=== PATIENT | male | born 1945 ===

== ENCOUNTER 2023-04-30 12:46 | Outpatient (REF) | payer MEDICARE, OTHER, SELFPAY ==
--- NOTE | ~2023-04-30 | XR_ITS ---
EXAMINATION: XR LUMBOSACRAL SPINE WITH OBLIQUES CLINICAL INFORMATION: Radiculopathy. COMPARISON: None available. TECHNIQUE: 4 views of the lumbosacral spine inclusive of flexion and extension views. FINDINGS: The bones are diffusely demineralized. Facet arthritis in the fje-be-lkbdw lumbar spine. Advanced multilevel degenerative changes in the lumbar spine with multilevel loss of disc space height most notable at L3-L4, and L4-L5. Minimal retrolisthesis of L2 on L3 with flexion and extension. XR/XR lumbar spine 4V min IMPRESSION: Advanced multilevel degenerative disc disease most notable at L3-L4 and L4-L5.
== END 2023-04-30 12:47 | disposition home or self-care (01) ==
LOC: HO.HOSX 12:46
PROVIDERS: Visit Provider Physician Assistant
DX: M54.16 Radiculopathy, lumbar region (principal)
CPT/HCPCS: 72110; 99202

== ENCOUNTER 2023-04-30 12:46 | Outpatient (AMB) | payer MEDICARE, MEDICAID, SELFPAY ==
--- NOTE | 2023-04-30 13:01 | HO.SPINEOV ---
Intake Intake Visit Reasons: left side sciatica Intake Note: Mr. Aguilera is here today c/o left sided sciatica that radiates down the leg Latex Spooler Required: No Allergies No Known Allergies Allergy (Verified 04/30/23 13:01) Assessment & Plan Assessment & Plan (1) Lumbar radiculopathy: Code(s): M54.16 - Radiculopathy, lumbar region Plan Dear JASON Benson, Thank you for referring Jorge to our office today. He is a pleasant 77 y/o male who comes in today with a CC of low back pain with radiation into his left lower extremity. When describing the radiation of his pain he runs his hand over his posterior left buttocks in across his lateral left calf. This pain has been present for >1 month. He reports that during the last snowstorm, he was shoveling snow and felt a pop in his back. He has had shooting pains into his left lower extremity since. This has affected his ability to walk, and causes him to need to stop and rest often while ambulating due to the pain. He was prescribed a course of ibuprofen alongside prednisone to help alleviate his symptoms but these did not help. He also reports he received a course of tramadol and gabapentin from his primary care provider which has been modestly helpful. He is attempted to utilize ice/heat/bayc-zue-iefcllh pain patches in creams without significant relief of symptoms. He has not yet attempted physical therapy or other conservative measures. PMH: Hypertension, hyperlipidemia, seasonal allergies. Social hx: Patient reports he does not smoke and denies substance use. Medications: Baclofen, Voltaren gel, fluticasone, losartan-hydrochlorothiazide, amlodipine, atorvastatin, alcometasone. Allergies: NKDA Physical exam: Jorge has 5/5 strength in his upper and lower extremities. He reports some tingling over the lateral aspect of his left calf and posterior buttocks on the left side. The rest of his sensation is grossly intact. His reflexes are 1+ hypoactive in the bilateral patella, and 2+ intact elsewhere. He ambulates with an antalgic gait significantly favoring his right side. (-) straight leg raise bilaterally. (-) Julien's. (-) clonus. Imaging review: MRI of the lumbar spine completed at [facility] shows diffuse spondylosis of the lumbar spine, with degenerative disc disease at L3-4 and L4-5. At L3-4 there is moderate central canal stenosis and severe bilateral foraminal stenosis. At L4-5 there appears to be a posterior disc protrusion causing moderate central canal stenosis, alongside severe bilateral foraminal stenosis worse on the right. Impression: Jorge is a pleasant 77-year-old male who comes in today with a chief complaint of 1 month of low back pain with radiation into his left lower extremity. He reports that this began acutely 1 month ago while shoveling snow. He felt a pop in his low back and has had pain ever since. When describing the radiation of his pain he runs his hand over his posterior buttocks in across his lateral left calf. This distribution is classic for an L5 radiculopathy on the left. I believe the patient is suffering from an acute L4-5 disc herniation causing his acute onset of low back pain with shooting pains into his left lower extremity. His conservative management has consistent largely of stretching in medication, therefore I would like him to be sent for physical therapy in the interim while he awaits a diskectomy. He has tentatively been scheduled for 06/15/2023 pending review and approval by Dr. Ortiz. The patient understands and is agreeable to this. This will give him plenty of time to attempt physical therapy. He was strongly advised to call us if he begins to have relief of symptoms as a result of engaging in physical therapy. We can postpone or cancel his surgery if so. I will update the patient next week with final approval and surgical plan updates after this case is reviewed with the attending Neurosurgeon Dr. Ortiz. Thank you for allowing us to care for your patient. The total time spent with this visit with this patient was 45 minutes reviewing history, physical exam, MRI imaging review, and implementation of treatment plan or further diagnostic testing Ricardo Ortiz MD,PhD [facility] Orders: Orders PT Evaluation and Treatment Today M54.16 - Radiculopathy, lumbar region XR lumbar spine 4V min Today M54.16 - Radiculopathy, lumbar region Coding Level of Care Code New Pt Level 4 (37688) Diagnoses Lumbar radiculopathy M54.16
== END 2023-04-30 13:43 | disposition home or self-care (01) ==
PROVIDERS: PCP Nurse Practitioner Family; Referring Provider Nurse Practitioner Family; Visit Provider Physician Assistant
DX: M54.16 Radiculopathy, lumbar region (principal)
CPT/HCPCS: 99204

== ENCOUNTER 2023-06-08 14:00 | Outpatient (RCR) | payer MEDICARE, OTHER, SELFPAY ==
--- NOTE | 2023-05-11 13:46 | MHC.PT.PR ---
[facility] [place] Office [place] [facility] [place] [facility] [address] Ted Mendes [address] [phone] F: [phone] F: [phone] F: [phone] F: [phone] Physical Therapy Progress Note Diagnosis: lumbar radiculopathy Date of Surgery: Date of Evaluation: 05/11/23 Treatments to Date: 1 Cancellations to Date: No Shows to Date: Subjective: I want to do my normal walking but this leg pain won't allow me. Pain Score and Location: 6 L buttock, pain shoots down L LE down to fibular head area Objective Measures: see eval Assessment: Pt is a 77yo male who presents with 1 month h/o lumbar radiculopathy, impairing his mobility. Skilled PT indicated to teach patient back protection techniques including sitting down with control and use of log roll during bed mobility, centralize radicular pain, increase core strength and L LE strength, teach HEP to carry-over pain management techniques at home. Pt in agreement with POC and is motivated to participate. PT Plan: Frequency and Duration: The patient will be seen 2x/week, x 6 weeks Treatment Plan: Therapeutic Exercise Dynamic Therapeutic Activities Manual Therapies Joint Mobilization Taping Gait Home Exercise Program Patient Education Electrical Stimulation Hot or Cold Pack Reviewed/ Agreed with Student Documentation: Therapist: Thank you once again for your referral.
--- NOTE | 2023-06-22 11:33 | MHC.PT.DC ---
[facility] [place] Office [place] Office [place] Office [address] [phone] F: [phone] F: [phone] F: [phone] F: [phone] Physical Therapy Discharge Report Diagnosis: lumbar radiculopathy Date of Surgery: Date of Evaluation: 05/11/23 Date of Discharge: 06/03/23 Treatments to Date: 9 Cancellations to Date: 0 No Shows to Date: 0 Discharge Status: Independent with HEP Recommend MD Follow-up Discharge Summary: Jorge participated in 9 PT treatments for lumbar radiculopathy. Pt has met STG's however continues to have LE pain. Pt is independent w/HEP and will be seeking follow up w/MD regarding continued radicular symptoms. Electronically signed by: Lizette White PT, DPT Please sign and return to therapist. Thank you for your referral.
== END 2023-06-22 11:34 | disposition home or self-care (01) ==
LOC: HO.PT 14:00
PROVIDERS: PCP Nurse Practitioner Family; Visit Provider Physician Assistant
DX: M54.16 Radiculopathy, lumbar region (principal)
CPT/HCPCS: 97012; 97110; 97140; 97161; 97530

== ENCOUNTER 2023-06-15 07:09 | Day surgery (SDC) | payer MEDICARE, OTHER, SELFPAY ==
[2023-06-01 13:18] VITALS: BP 135/63; PULSE 89; RESP 20; O2SAT 98; BMI 29.3
--- NOTE | 2023-06-01 13:29 | HO.ANESPROP2 ---
Documented by User: Camila Montalvo NP 06/01/23 13:44 HPI - Anesthesia Eval Consult details Narrative: 77yo M for Left L4-5 Microlumbar discectomy No recent illness No CP/SOB with walking with cane, >4 mets prior to back injury PreDM: 90-110, no rx PMFSH Active Problems Active Problems: All Active Problems (Updated 06/01/23 @ 13:13 by Eri Mercado RN) Lumbar radiculopathy (Acute) Past Medical History Medical History Back pain Pre-diabetes Elevated cholesterol HTN (hypertension) Family History Family history of problems with anesthesia: No Surgical History Surgical History History of esophagogastroduodenoscopy (EGD) H/O colonoscopy History of Problems with Anesthesia: No Social History Social History Household Members Other:: fiance Are you a primary career guidance technician to a significant other at home: No Do you presently have visiting nurse or other home services: No Patient Tobacco Use Status: Never used Tobacco Use of substances other than those prescribed or required for medical reasons: No Have you been hit, kicked, punched, or otherwise hurt by someone within the past year? If so, by whom?: No Are you DNR?: No Advance Directives: No Advance Directives Information Provided: Yes Advance Directives on File: No Recently lost weight without trying: No Eating poorly because of decreased appetite: No Nutrition Risks: Surgical patient >75years Poor oral hygiene: No (upper partial) Meds Allergies Allergy/AdvReac Type Severity Reaction Status Date / Time No Known Allergies Allergy Verified 04/30/23 13:01 Home Medications ?Medication ?Instructions ?Recorded ?Confirmed ?Last Taken ?Type amlodipine 2.5 mg tablet 2.5 mg PO DAILY 05/31/23 05/31/23 06/15/23 History ascorbic acid (vitamin C) 500 mg 500 mg PO DAILY 05/31/23 05/31/23 Unknown History tablet atorvastatin 20 mg tablet 20 mg PO DAILY 05/31/23 05/31/23 Unknown History fluticasone propionate 50 1 spray intranasal DAILY 05/31/23 05/31/23 Unknown History mcg/actuation nasal spray,suspension losartan 100 1 tab PO DAILY 05/31/23 05/31/23 Unknown History mg-hydrochlorothiazide 12.5 mg tablet multivitamin 1 tab PO DAILY 05/31/23 05/31/23 Unknown History Exam Height,Weight and Vital Signs: Height 5 ft 11 in Weight 95.254 kg Last Vital Signs Pulse 89 06/01/23 13:18 Resp 20 06/01/23 13:18 BP 135/63 06/01/23 13:18 Pulse Ox 98 06/01/23 13:18 O2 Del Method Room Air 06/01/23 13:18 Airway Mallampati Class: III TM Dist: >3cm Neck ROM: Full Partial: Upper Heart: RRR Lungs: CTAB Assessment and Plan Assessment Anesthesia Assessment: Anesthesia Plan Discussed and PAT Visit Final Anesthetic Review Family History of Problems with Anesthesia: No History of Problems with Anesthesia: No Documented by User: Aliya Madrigal MD 06/15/23 09:38 PMFSH Active Problems Active Problems: All Active Problems (Updated 06/15/23 @ 09:10 by Aliya Madrigal MD) Lumbar radiculopathy (Acute) HTN HLD Low back pain Past Medical History Medical History Back pain Pre-diabetes Elevated cholesterol HTN (hypertension) Family History Family history of problems with anesthesia: No Surgical History Surgical History History of esophagogastroduodenoscopy (EGD) H/O colonoscopy History of Problems with Anesthesia: No Social History Social History Household Members Other:: fiance Are you a primary career guidance technician to a significant other at home: No Do you presently have visiting nurse or other home services: No Patient Tobacco Use Status: Never used Tobacco Use of substances other than those prescribed or required for medical reasons: No Have you been hit, kicked, punched, or otherwise hurt by someone within the past year? If so, by whom?: No Are you DNR?: No Advance Directives: No Advance Directives Information Provided: Yes Advance Directives on File: No Recently lost weight without trying: No Eating poorly because of decreased appetite: No Nutrition Risks: Surgical patient >75years Poor oral hygiene: No (upper partial) Meds Allergies Allergy/AdvReac Type Severity Reaction Status Date / Time No Known Allergies Allergy Verified 04/30/23 13:01 Home Medications ?Medication ?Instructions ?Recorded ?Confirmed ?Last Taken ?Type amlodipine 2.5 mg tablet 2.5 mg PO DAILY 05/31/23 05/31/23 06/15/23 History ascorbic acid (vitamin C) 500 mg 500 mg PO DAILY 05/31/23 05/31/23 Unknown History tablet atorvastatin 20 mg tablet 20 mg PO DAILY 05/31/23 05/31/23 Unknown History fluticasone propionate 50 1 spray intranasal DAILY 05/31/23 05/31/23 Unknown History mcg/actuation nasal spray,suspension losartan 100 1 tab PO DAILY 05/31/23 05/31/23 Unknown History mg-hydrochlorothiazide 12.5 mg tablet multivitamin 1 tab PO DAILY 05/31/23 05/31/23 Unknown History Exam Height,Weight and Vital Signs: Height 5 ft 11 in Weight 95.254 kg Last Vital Signs Pulse 89 06/01/23 13:18 Resp 20 06/01/23 13:18 BP 135/63 06/01/23 13:18 Pulse Ox 98 06/01/23 13:18 O2 Del Method Room Air 06/01/23 13:18 Vital Signs Temp Pulse Resp BP Pulse Ox O2 Del Method 06/15/23 07:53 98.5 F 90 16 142/65 H 98 Room Air Airway Mallampati Class: II TM Dist: >3cm Neck ROM: Full Partial: Upper Loose/Missing/Broken Teeth: Yes (Top partial dentures. Missing some teeth bottom. Denies broken or loose teeth) Assessment and Plan Assessment Anesthesia Assessment: Anesthesia Plan Discussed, PAT Visit and Chart Reviewed Final Anesthetic Review Family History of Problems with Anesthesia: No History of Problems with Anesthesia: No NPO: Yes ASA Class: II Final Preanesthetic Review: No Changes in Pt Med Stat, Meds/Allgs Chart Reviewed, Consent Obtained/Reviewed and Anes Risks/Benef Reviewed Patient Risk: Intermediate Procedure Risk: Intermediate Assessment/Block/Sedation in SS: Assess/Block/Sedation-SS Anesthetic Plan Anesthetic Plan: GA Disposition: Standard PACU
[2023-06-15] VITALS (9 sets, daily range): BP systolic 85–153; BP diastolic 43–72; PULSE 61–90; RESP 12–18; TEMP 36.1–36.9; O2SAT 91–98; BMI 30.3
--- NOTE | ~2023-06-15 | FL_ITS ---
EXAMINATION: XR FLUOROSCOPY WITH IMAGES CLINICAL INFORMATION: L4-L5 decompression. COMPARISON: Lumbar spine radiographs dated 04/30/2023. TECHNIQUE: Fluoroscopy Supervised By: Dr. Omkar Ortiz. Fluoroscopy Time: 1.7 seconds. Cumulative Dose: 1.6215 mGy. DAP: 0.5209 Gycm2. Images: 1. FINDINGS: The submitted image shows a probe with tip positioned at the posterior L5-S1 level. FL/FL guidance in OR IMPRESSION: Intraoperative fluoroscopic guidance is provided during L5-S1 decompression surgery. Please see the patient's Operative Report for full procedural details.
--- NOTE | 2023-06-15 07:05 | MHC.SHP ---
Pre-Procedural Eval Section A - 24 Hr Update-Section A only Date of Service: 06/15/23 The patient is an INPATIENT: No Changes since office visit: No Cold of Flu in the past 2 weeks, No New Medical Problems, No Changes in Medication and No Patient answered all questions Section B - Complete if H&P > 30 days Chief Complaint: Radiculopathy, lumbar region Allergies: Allergies Allergy/AdvReac Type Severity Reaction Status Date / Time No Known Allergies Allergy Verified 04/30/23 13:01 Review of Systems Sugical H&P ROS: Negative: Constitution, Cardiovascular, Respiratory, Neurological, Psychiatric, Hem-Onc, Allergic/Immunologic, Gastrointestinal, Genitourinary, Musculoskeletal, Integumentary, Endocrine and Eyes/Ears/Nose/Throat Exam Surgical H&P Exam: Not Evaluated: HEENT, Not Evaluated: Heart, Not Evaluated: Lungs, Not Evaluated: Extremities, Not Evaluated: Abdomen, Not Evaluated: Skin and Not Evaluated: Neurological Plan Diagnosis/Plan: Unchanged left L4-5 decompression Time Spent With Patient Time: Total time managing care of this patient today __5__ minutes.
[2023-06-15] MEDS: methocarbamoL 750 MG TABLET PO (08:04)
[2023-06-15] MEDS: Gabapentin 300 MG CAPSULE PO (08:04)
[2023-06-15] MEDS: Lactated Ringers 1,000 ML 100 ML IVCONT (08:04)
--- NOTE | 2023-06-15 09:00 | PM.DS ---
DS: Providers Provider Date of Service: 06/15/23 Date of discharge: 06/15/23 Primary care physician: Darius Benson NP Admitting clinician: Jitendra Ortiz DS: Diagnosis Discharge Diagnosis (1) Lumbar radiculopathy: Status: Acute DS: Summary Time Attestation Discharge Coordination Time (in mins): 6 Quality: Safe Use of Opioids Does Pt have an Active Cancer Diagnosis on the Problem List?: No Quality: Stroke Does the patient have a stroke diagnosis?: No Physical Exam Vital Signs: Vital Signs: Last Vital Signs Temp 98.5 F 06/15/23 07:53 Pulse 90 06/15/23 07:53 Resp 16 06/15/23 07:53 BP 142/65 H 06/15/23 07:53 Pulse Ox 98 06/15/23 07:53 O2 Del Method Room Air 06/15/23 07:53 BMI result Body Mass Index 30.3 Discharge Plan Discharge Patient Disposition: Home, Self-Care Referrals: Darius Benson NP [Primary Care Provider] - 1 Week Discharge Medications: New docusate sodium [Colace] 100 mg capsule 100 mg PO BID Qty: 20 0RF oxycodone 5 mg tablet 5 mg PO Q4H PRN (Reason: pain) Qty: 20 0RF Rx Instructions: Partial Fill upon patient request. Continued multivitamin Tablet 1 tab PO DAILY atorvastatin 20 mg tablet 20 mg PO DAILY amlodipine 2.5 mg tablet 2.5 mg PO DAILY ascorbic acid (vitamin C) 500 mg Tablet 500 mg PO DAILY fluticasone propionate 50 mcg/actuation spray,suspension 1 spray intranasal DAILY losartan-hydrochlorothiazide 100-12.5 mg tablet 1 tab PO DAILY Discharge Orders: Discharge Order (Routine); Ordered 06/15/23 Ordered By: New [place] Diet: Advance to usual diet Activity on Discharge: As tolerated Activity Restrictions/Additional Instructions: After your spinal surgery we ask you to observe the following restrictions/guidelines: Activity: It is normal to feel some discomfort as you increase your activity, but that will improve with time. We ask you avoid heavy lifting or acitivities that cause pain. As a general rule, 8lbs is a safe limit for lifting right after surgery. Walk as much as you feel comfortable but not to exhaustion. You will feel extra tired the first few days after surgery. Stay well hydrated. It is OK to walk up and down stairs You may return to driving when you are off narcotics (such as vicodin, oxycodone, dilaudid, etc), and you are back to normal functional capacity. If you have any concerns please check with office before driving. Return to work is specific to each patient and each surgery, so please speak with your doctor/PA at first follow up. Please bring paperwork such as FMLA at that time if you need it filled out. Medications: For optimum pain control, it is best to start with a combination of 500 mg of Tylenol every 4 hours with 600 mg of Motrin every 8 hours, and use narcotics as needed in between for breakthrough pain. We will give you a short supply of narcotics after surgery (usually one weeks worth). If you need more please call the office but do not use more than prescribed. You will need to give our office 48 hours notice if you need narcotics refilled and we do not fill narcotics on weekends or evenings. If you are on a narcotic, it is a good idea to take a stool softener such as colace or senna to avoid constipation If you take blood thinner such as aspirin, Plavix, Coumadin, Effient, Eliquis etc for conditions such as Afib, DVT, Pulmonary embolus, coronary disease, stents etc please speak with your surgeon about specific details as to when you can resume these medications. You can resume NSAIDs on post op day 1 (eg: Motrin, Naproxen, etc). Follow up: Please call the office, , after surgery to arrange a 3 week follow up for wound check. Wound Care: You may remove your dressing on the first day after surgery. ?You may ?leave open to air. Please do not remove the steri strips underneath. they will fall off on their own in one week. IT IS NORMAL FOR THE WOUND TO OOZE OR BE BLOODY FOR A FEW DAYS AFTER SURGERY. ?IF THIS HAPPENS JUST PLACE NEW DRESSING OVER IT TO AVOID STAINING CLOTHES. You may shower on post op day # 1 We ask that you do not let the water soak the wound. If it does get wet, just towel dry lightly. Please do not scrub your incision or place any type of chemical/ointment on the wound. No tub baths, pools or jacuzzis for one month. If you have any leaking or redness from your wound, or fevers, please call office Print Language: Yoruba
--- NOTE | 2023-06-15 10:38 | P.OP_ITS ---
Operative Note Operative Note Date of Service: 06/15/23 Narrative: Preoperative Diagnosis: L4-5 spinal stenosis/lateral recess stenosis/neural foraminal stenosis Operation: Left L4-5 Laminotomy, Partial facetectomy and foraminotomy with use of microscope Consent Informed Consent was obtained for this operation. I have explained the nature, purpose and benefits of the operation. I have discussed the risks and benefit of the operation including possible complications or adverse events with patient/family. Alternative(s) were discussed with the patient with their relative benefits and risks as well as the consequences of not accepting the operation were included in obtaining consent. Surgeon: ALEKSANDAR KHAN MD, PHD Procedure Assisted By: [place] Description of Procedure Patient is suffering from unilateral neurogenic claudication due to L4-5 spinal stenosis.. The patient was offered a decompression. The procedure complications were explained. The patient was consented. The patient was brought to the operating room and endotracheally intubated. The patient was turned in prone position on the Андрей frame. Prep and drape was done followed by timeout. The Physician medical record assistant provided access. A mid lumbar incision was made followed by release of the paravertebral muscle on the left side to expose the L4-5 laminae and facet joints. An intraoperative x-ray was obtained to confirm the correct level. The microscope was brought in. I took over the procedure. The high-speed drill was used to do a L4-5 laminotomy until flavum ligament was reached. A #2 Kerrison was used to expand the laminotomy near flush to the pedicles and to include a partial facetectomy. The flavum ligament was opened and resected with a #3 Kerrison to decompress the underlying thecal sac. The flavum ligament was removed to decompress the lateral recess and the exiting L5 nerve root. A long nerve hook could be easily passed along the medial side of the pedicles as a sign of adequate decompression. There was also a significant disc bulge but this was calcified. The microscope was removed. Hemostasis was done. The physician medical record assistant close the Incision in 2 layers. Steri-Strips were used to approximate incision. An OpSite with Tegaderm was used to cover the incision. All sponge needle counts were correct. Patient was extubated and transported in stable is to recovery room. Anesthesia: General Estimated Blood Loss (ml): 20 mL Complications: None Duration of Surgery: Under 60 Minutes Postoperative Plan: Discharge to home
[2023-06-15] MEDS: Ondansetron ODT 4 MG TAB.RAPDIS TRANSLINGU (12:12)
--- NOTE | 2023-06-15 12:16 | HO.INF ---
PATIENT IN DC AREA....STATED FEELING DIZZY WITH SOME NAUSEA. DR. MCGOVERN (ANESTHESIOLOGIST) ASSESSED. PATIENT GIVEN ZOFRAN SL PER ORDER. PATIENT BROUGHT BACK TO PACU FOR SOME MORE FLUIDS R/T BP, 85/44, 92/43, HR 63, 02 SATS 91 TO 92 %.
--- NOTE | 2023-06-15 13:53 | HO.INF ---
PT CAME BACK TO DC AREA STILL REPORTING SOME DIZZINESS AND FATIGUE. DR. MCGOVERN REASSESSED PATIENT WITH VSS, 120/67, 72 AND 02 95%. DR[address] MCGOVERN CLEARED PATIENT AND PATIENT DC'D HOME WITH FAMILY MEMBER.
== END 2023-06-15 13:59 | disposition home or self-care (01) ==
PROVIDERS: PCP Nurse Practitioner Family; Visit Provider Neurological Surgery
PROC: (CPT 63047; principal; 2023-06-15 09:40)
DX: M54.16 Radiculopathy, lumbar region (principal); M48.061 Spinal stenosis, lumbar region without neurogenic claudication; M54.50 Low back pain, unspecified; R26.89 Other abnormalities of gait and mobility; R20.2 Paresthesia of skin; I10 Essential (primary) hypertension; E78.5 Hyperlipidemia, unspecified; J30.2 Other seasonal allergic rhinitis; Z79.51 Long term (current) use of inhaled steroids; Z79.899 Other long term (current) drug therapy
CPT/HCPCS: 63047; J0131; J0690; J2405; J2704; J3010

== ENCOUNTER → 2023-06-15 07:09 | Outpatient (BNV) | payer MEDICARE, MEDICAID, SELFPAY | PROVIDERS: PCP Nurse Practitioner Family; Visit Provider Neurological Surgery | DX: M48.062 Spinal stenosis, lumbar region with neurogenic claudication (principal); M54.16 Radiculopathy, lumbar region | CPT/HCPCS: 63047; 99499 ==

== ENCOUNTER 2023-07-06 13:27 | Outpatient (AMB) | payer MEDICARE, SELFPAY ==
--- NOTE | 2023-07-06 13:30 | A.SPINEOV_ITS ---
Intake Visit Reasons: 1st post op Intake Note: Mr. Aguilera is here today for 1st post-op appointment. Technology Instructor Required: No Allergies No Known Allergies Allergy (Verified 07/06/23 13:32) Assessment & Plan Assessment & Plan (1) Lumbar radiculopathy: Code(s): M54.16 - Radiculopathy, lumbar region Category: Medical Plan Procedure: Left L4-5 Laminotomy, Partial facetectomy and foraminotomy with use of microscope Jorge comes in today for his 1st postoperative visit. He reports he is very satisfied with the surgery and feels much better than he did pre-operatively. The patient reports he is up walking around and completing the majority of his ADLs. He reports he still has some residual left lumbar radiculopathy, but feels it is significantly better than it was prior to his surgery. It does not limit him to the extent that it previously did. He has several questions about postoperative healing course including activity and lifting restrictions. I answered these questions to the best of my ability No new neurological deficits. Patient is able to ambulate well, rises from a seated position without difficulty. Steri-Strips were still in place, they were removed. Incision site is closed, well healing, with no signs of drainage. We will follow-up with the patient in 6 weeks for their 2nd postoperative visit. Ricardo Ortiz MD,PhD [facility] Coding Level of Care Code Global (37529) Diagnoses Lumbar radiculopathy M54.16
== END 2023-07-06 13:52 | disposition home or self-care (01) ==
PROVIDERS: PCP Nurse Practitioner Family; Visit Provider Physician Assistant
DX: M54.16 Radiculopathy, lumbar region (principal)
CPT/HCPCS: 99024

== ENCOUNTER → 2023-07-06 13:27 | Outpatient (BNVA) | payer MEDICARE, SELFPAY | PROVIDERS: PCP Nurse Practitioner Family; Visit Provider Physician Assistant | DX: Z48.89 Encounter for other specified surgical aftercare (principal) | CPT/HCPCS: 99212 ==

== ENCOUNTER 2023-08-17 13:21 | Outpatient (AMB) | payer MEDICARE, SELFPAY ==
--- NOTE | 2023-08-17 13:27 | A.SPINEOV_ITS ---
Intake Visit Reasons: 2nd post op Intake Note: Ms. Aguilera is here today for 2nd post op Valet Attendant Required: No Allergies No Known Allergies Allergy (Verified 07/06/23 13:32) Assessment & Plan Assessment & Plan (1) Lumbar radiculopathy: Code(s): M54.16 - Radiculopathy, lumbar region Category: Medical Plan Procedure: Left L4-5 Laminotomy, Partial facetectomy and foraminotomy Jorge comes in today for his second post-operative visit. He reports that he is doing very well since his surgery, and is feeling overall very well. He states that he still has some tenderness in his low back but feels that also is improving. He reports good relief of tenderness with OTC meds. He has several questions regarding the postoperative healing course all of which I answered to the best of my ability. No new neurological deficits. Patient is able to ambulate well, rises from a seated position without difficulty. Incision site is closed, well healing, with no signs of drainage. There is no need for continued routine follow up at this time. He may be dischaged as a patient. Ricardo Ortiz MD,PhD [facility] Coding Level of Care Code Global (49629) Diagnoses Lumbar radiculopathy M54.16
== END 2023-08-17 13:54 | disposition home or self-care (01) ==
PROVIDERS: PCP Nurse Practitioner Family; Visit Provider Physician Assistant
DX: M54.16 Radiculopathy, lumbar region (principal)
CPT/HCPCS: 99024

== ENCOUNTER → 2023-08-17 13:21 | Outpatient (BNVA) | payer MEDICARE, MEDICAID, SELFPAY | PROVIDERS: PCP Nurse Practitioner Family; Visit Provider Physician Assistant | DX: Z09 Encounter for follow-up examination after completed treatment for conditions other than malignant neoplasm (principal) | CPT/HCPCS: 99212 ==